=== PATIENT | male | born 1940 | race Caucasian/White ===

== ENCOUNTER → 2024-02-16 10:27 | Outpatient (REF) | payer MEDICARE, OTHER, SELFPAY | LOC: HWRAD 10:27 | PROVIDERS: ATTENDING PHYSICIAN Thoracic Surgery (Cardiothoracic Vascular Surgery); FAMILY PHYSICIAN Internal Medicine | DX: I71.21 Aneurysm of the ascending aorta, without rupture (principal) | CPT/HCPCS: 71250 ==

== ENCOUNTER → 2024-03-03 07:27 | Outpatient (REF) | payer MEDICARE, OTHER, SELFPAY | LOC: DHVS 07:27 | PROVIDERS: ATTENDING PHYSICIAN Surgery Vascular Surgery; FAMILY PHYSICIAN Internal Medicine | DX: I71.21 Aneurysm of the ascending aorta, without rupture (principal) | CPT/HCPCS: 76770 ==

== ENCOUNTER → 2025-02-17 09:02 | Outpatient (REF) | payer MEDICARE, OTHER, SELFPAY | LOC: RAD 09:02 | PROVIDERS: ATTENDING PHYSICIAN Thoracic Surgery (Cardiothoracic Vascular Surgery); FAMILY PHYSICIAN Internal Medicine | DX: I71.21 Aneurysm of the ascending aorta, without rupture (principal) | CPT/HCPCS: 71250 ==

== ENCOUNTER → 2025-03-09 07:32 | Outpatient (REF) | payer MEDICARE, OTHER, SELFPAY | LOC: RAD 07:32 | PROVIDERS: ATTENDING PHYSICIAN Physician Assistant; FAMILY PHYSICIAN Internal Medicine | DX: I72.3 Aneurysm of iliac artery (principal) | CPT/HCPCS: 76770 ==